=== PATIENT | male | born 1995 | race African-American/Black ===

== ENCOUNTER 2019-02-23 20:16 | Emergency (ER) | payer OTHER, SELFPAY ==
[2019-02-23] MEDS ORDERED: Acetaminophen 500 MG TAB ONE (21:52)
[2019-02-23] MEDS ORDERED: Ketorolac Tromethamine 30 MG/ML VIAL ONE (21:52)
[2019-02-23] MEDS ORDERED: Ibuprofen 800 MG TAB ONE (22:13)
== END 2019-02-23 22:47 | disposition home or self-care (01) ==
LOC: ERS 20:16
DX: M54.5 Low back pain (principal); M54.2 Cervicalgia; F17.210 Nicotine dependence, cigarettes, uncomplicated; V89.2XXA Person injured in unspecified motor-vehicle accident, traffic, initial encounter
CPT/HCPCS: 99283; J1885